=== PATIENT | male | born 1980 | race American Indian/Alaskan Native ===

== ENCOUNTER 2021-09-22 11:16 | Emergency (ER) | payer MEDICAID ==
[~2021-09-22] VITALS: Ht 180.3 cm; Wt 75.0 kg
[2021-09-22] MEDS ORDERED: LISI20TA28 PO ×2 (11:27→11:39)
[2021-09-22] MEDS ORDERED: AMLO2.5T2 PO (11:27)
[2021-09-22] MEDS ORDERED: lisinopril 10 MG tablet PO ONE (11:35)
[2021-09-22] MEDS ORDERED: amLODIPine 5mg tablet PO ONE (11:35)
[2021-09-22] MEDS ORDERED: AMLO5TAB4 PO (11:39)
[2021-09-22 12:09] VITALS: BP 186/106
== END 2021-09-22 12:20 ==
LOC: ER 11:17
DX: Z00.00 Encounter for general adult medical examination without abnormal findings (principal); I10 Essential (primary) hypertension; F17.200 Nicotine dependence, unspecified, uncomplicated
CPT/HCPCS: 99283